=== PATIENT | female | born 1955 | race Caucasian/White ===

== ENCOUNTER 2024-04-26 09:59 | Emergency (ER) | payer MEDICARE ==
[2024-04-26] VITALS (12 sets, daily range): BP systolic 106–132; BP diastolic 49–72
[~2024-04-26] VITALS: Ht 162.6 cm; Wt 103.8 kg
[2024-04-26] MEDS ORDERED: LOTRISONE CREAM15 G1 EX (10:18)
[2024-04-26] MEDS ORDERED: FLUOXETINE HYDR20 MG PO (10:18)
[2024-04-26] MEDS ORDERED: OMEPRAZOLE DR40 MG PO (10:19)
[2024-04-26] MEDS ORDERED: CRESTOR20 MG PO (10:20)
[2024-04-26] MEDS ORDERED: ONDANSETRON HCl 4 MG/2 ML SDV IV ONE (10:20)
[2024-04-26] MEDS ORDERED: SODIUM CHLORIDE 0.9% 1,000 ML IV ONE (10:20)
[2024-04-26] MEDS ORDERED: ZEPBOUND SC (10:21)
[2024-04-26] MEDS ORDERED: HUMIRA20 MG/0.2 SC (10:23)
[2024-04-26 10:32] LABS: BASO% 0.1 % (0-3); EOS% 2.2 % (0-8); HEMATOCRIT 36.3 % (37.0-47.0); HEMOGLOBIN 11.1 g/dl (12.0-16.0); IMMATURE GRANULOCYTES 0.3 % (0.0-5.0); LYMPH% 26.2 % (15-41); MEAN CORPUSCULAR HGB 26.3 pG CALC (26.0-32.0); MEAN CORPUSCULAR HGB CONC 30.6 g/dL CAL (32.0-36.0); MONO% 9.9 % (2-13); NEUT# 4.38 thou/uL (2.00-7.15); NEUT% 61.3 % (42-76); RED BLOOD COUNT 4.22 mill/uL (4.20-5.60); RED CELL DISTRI WIDTH 14.9 % (11.5-15.5)
[2024-04-26 10:39] LABS: ALBUMIN 4.2 g/dL (3.2-5.0); ALKALINE PHOSPHATASE 115 u/l (38-126); ANION GAP 12 (6-22 (CALC)); BILIRUBIN, TOTAL 0.5 mg/dL (0.02-1.3); BUN 12 mg/dL (8-23); BUN/CREATININE RATIO 20 (12-20 (CALC)); CARBON DIOXIDE 26 mmol/l (22-30); CHLORIDE 106 mmol/l (95-108); CREATININE 0.6 mg/dL (0.5-1.0); ESTIMATED GFR 97 ML/MIN (>=90 (CALC)); LIPASE 103 u/l (23-300); POTASSIUM 4.1 mmol/l (3.5-5.1); SGOT/AST 32 u/l (9-36); SODIUM 140 mmol/l (137-146); TOTAL PROTEIN 7.5 g/dL (6.3-8.2)
[2024-04-26 11:19] LABS: URINE BILIRUBIN - DIPSTICK Negative (NEGATIVE); URINE BLOOD DIPSTICK Negative (NEGATIVE); URINE COLOR Yellow; URINE GLUCOSE - DIPSTICK Negative (NEGATIVE); URINE KETONE Negative (NEGATIVE); URINE LEUK ESTERASE Trace (NEGATIVE); URINE NITRITE - DIPSTICK Negative (Negative); URINE PH 5.5 (4.5-8.0); URINE PROTEIN - DIPSTICK Negative (NEG-TRACE); URINE UROBILINOGEN - DIPSTICK 0.2 E.U./dL (0.2)
[2024-04-26] MEDS ORDERED: ZOFRAN4 MG/TAB PO (15:33)
== END 2024-04-26 15:45 | disposition home or self-care (01) ==
LOC: ED 09:59
PROVIDERS: Family Medicine
DX: R11.2 Nausea with vomiting, unspecified (principal); R19.7 Diarrhea, unspecified; E66.9 Obesity, unspecified; I10 Essential (primary) hypertension
CPT/HCPCS: J2405; Q9967